=== PATIENT | male | born 1975 | race Caucasian/White ===

== ENCOUNTER 2018-12-29 00:10 | Emergency (ER) | payer BC ==
[~2018-12-29] VITALS: Ht 185.4 cm; Wt 68.0 kg
[2018-12-29 00:38] VITALS: BP 142/81
[2018-12-29] MEDS ORDERED: LEVETIRACETAM (250 MG) 250 MG TABLET PO ONE ×2 (02:00→02:03)
== END 2018-12-29 02:07 | disposition home or self-care (01) ==
LOC: ER 00:11
DX: G40.909 Epilepsy, unspecified, not intractable, without status epilepticus (principal); Z91.030 Bee allergy status; Z88.6 Allergy status to analgesic agent; Z59.0 Homelessness